=== PATIENT | female | born 1970 | race Caucasian/White ===

== ENCOUNTER 2018-09-25 06:11 | Inpatient (IN) | payer MEDICAID ==
[2018-09-25] VITALS (57 sets, daily range): BP systolic 107–150; BP diastolic 26–109
[~2018-09-25] VITALS: Ht 160 cm; Wt 74.6 kg
[~2018-09-25 06:11] MED LIST: AMIT100T2 PO; ATOR-2 PO; BENA20TA10 PO; LACTATED RINGERS 1,000 ML IV SCH; SERT-112 PO
[2018-09-25] MEDS ORDERED: ALPR1TAB2 PO (07:51)
[2018-09-25] MEDS ORDERED: DULO30CA2 PO (07:51)
[2018-09-25] MEDS ORDERED: THROMBIN (BOVINE) 5000 UNITS/VIAL TOP ONE (07:56)
[2018-09-25] MEDS ORDERED: BACITRACIN 50,000 UNITS/VIAL ONE (07:56)
[2018-09-25] MEDS ORDERED: NORMAL SALINE 0.9% 10 ML SYR ONE (07:56)
[2018-09-25] MEDS ORDERED: LIDOCAINE HCL/EPINEPHRINE 1%-EPI 1:100,000 20 ML VIAL ONE (07:56)
[2018-09-25] MEDS ORDERED: HYDROCODONE/APAP 7.5/325MG 1 TAB TABLET PO PRN (09:30)
[2018-09-25] MEDS ORDERED: FENTANYL CITRATE/PF 50MCG/ML 2ML VIAL ONE ×2 (09:54→11:11)
[2018-09-25] MEDS ORDERED: ROCURONIUM BROMIDE 10MG/ML VIAL 5ML IV ONE (09:54)
[2018-09-25] MEDS ORDERED: MIDAZOLAM HCL 5 MG/5 ML VIAL ONE (09:55)
[2018-09-25] MEDS ORDERED: PROPOFOL 200MG/20ML VIAL IV ONE (09:55)
[2018-09-25] MEDS ORDERED: CEFAZOLIN SODIUM 1000MG/VIAL ONE (09:56)
[2018-09-25] MEDS ORDERED: LIDOCAINE HCL/PF 1% 10 MG/ML 5ML VIAL ONE (09:56)
[2018-09-25] MEDS ORDERED: MIDAZOLAM HCL 2 MG/2 ML VIAL ONE (09:57)
[2018-09-25] MEDS ORDERED: METOCLOPRAMIDE HCL 10MG/2ML VIAL ONE (11:58)
[2018-09-25] MEDS ORDERED: NEOSTIGMINE METHYLSULFATE 1MG/ML 10 ML VIAL ONE (12:01)
[2018-09-25] MEDS ORDERED: GLYCOPYRROLATE 0.2 MG/ML 2ML VIAL ONE (12:01)
[2018-09-25] MEDS ORDERED: NICARDIPINE 100 MG in SODIUM CHLORIDE 0.9% 60 ML IV PRN (12:30)
[2018-09-25] MEDS: DEXT 5%/LACTATED RINGERS 1,000 ML IV SCH ×2 (13:02→18:06)
[2018-09-25] MEDS: MORPHINE SULFATE 4 MG/ML CPJ (NOT FOR IM USE) IV PRN (13:27)
[2018-09-25] MEDS: ONDANSETRON HCL 4MG/2ML INJ IV PRN ×3 (13:27→21:18)
[2018-09-25] MEDS ORDERED: ONDANSETRON INJ IV PRN (13:45)
[2018-09-25] MEDS ORDERED: NALOXONE INJ IV PRN (13:45)
[2018-09-25] MEDS ORDERED: CEFAZOLIN SODIUM 1000MG/VIAL IV SCH (14:00)
[2018-09-25] MEDS: MORPHINE PCA 50MG/50ML IV PRN (14:25)
[2018-09-25] MEDS ORDERED: IPRATROPIUM/ALBUTEROL 0.5-3(2.5)MG/3ML NEB HHN PRN (16:00)
[2018-09-25] MEDS: CEFAZOLIN 1000MG PREMIX 50 ML IV SCH ×2 (18:05→22:49)
[2018-09-25] MEDS: PANTOPRAZOLE SODIUM 40 MG/VIAL IV SCH (18:05)
[2018-09-25] MEDS: DEXAMETHASONE 4MG/ML 1ML VIAL IV SCH (18:06)
[2018-09-25] MEDS: DULOXETINE HCL 30MG DR CAPSULE PO SCH (18:07)
[2018-09-25] MEDS: ATORVASTATIN CALCIUM 10MG TABLET PO SCH (21:18)
[2018-09-26] VITALS (59 sets, daily range): BP systolic 100–154; BP diastolic 52–97
[2018-09-26] MEDS: DEXAMETHASONE 4MG/ML 1ML VIAL IV SCH ×4 (00:19→18:19)
[2018-09-26] MEDS: MORPHINE SULFATE 4 MG/ML CPJ (NOT FOR IM USE) IV PRN ×2 (00:19→20:43)
[2018-09-26] MEDS: MORPHINE PCA 50MG/50ML IV PRN ×2 (04:05→18:46)
[2018-09-26] MEDS: CEFAZOLIN 1000MG PREMIX 50 ML IV SCH ×2 (05:52→13:02)
[2018-09-26] MEDS: DEXT 5%/LACTATED RINGERS 1,000 ML IV SCH ×4 (05:53→23:57)
[2018-09-26 06:08] LABS: HEMATOCRIT. 37.2 % (36.0-48.0); HEMOGLOBIN. 12.5 g/dL (12.0-16.0); MEAN CORPUSCULAR HEMOGLOBIN 30.3 pg (28.0-32.0); MEAN CORPUSCULAR VOLUME 90.3 fL (81.0-99.0); MEAN PLATELET VOLUME 9.2 fl (7.4-10.4); PLATELET 256 x1000/uL (130-400); RED BLOOD CELL COUNT 4.12 mill/uL (4.2-5.4)
[2018-09-26 06:15] LABS: CHLORIDE 106 mEq/L (98-107)
[2018-09-26] MEDS: ONDANSETRON HCL 4MG/2ML INJ IV PRN (06:25)
[2018-09-26 07:25] LABS: PLATELET ESTIMATE NORMAL
[2018-09-26] MEDS: PANTOPRAZOLE SODIUM 40 MG/VIAL IV SCH (09:53)
[2018-09-26] MEDS: DULOXETINE HCL 30MG DR CAPSULE PO SCH ×2 (09:53→18:19)
[2018-09-26] MEDS: DIPHENHYDRAMINE INJ IV PRN ×2 (09:53→18:19)
[2018-09-26] MEDS: METOCLOPRAMIDE HCL 10MG/2ML VIAL IV PRN (18:19)
[2018-09-26] MEDS: ATORVASTATIN CALCIUM 10MG TABLET PO SCH (20:43)
[2018-09-26 20:57] LABS: CLARITY URINE CLEAR (CLEAR); COLOR URINE YELLOW (YELLOW); KETONES URINE NEGATIVE (NEGATIVE); LEUKOCYTE ESTERASE URINE NEGATIVE (NEGATIVE); NITRITE URINE NEGATIVE (NEGATIVE); OCCULT BLOOD URINE TRACE (NEGATIVE); PROTEIN URINE NEGATIVE (NEGATIVE); SPECIFIC GRAVITY URINE 1.008 (1.005-1.030); UROBILINOGEN URINE 0.2 E.U./dL (0.2-1.0)
[2018-09-26 21:13] LABS: *AMPHETAMINES SCREEN URINE NEGATIVE (NEGATIVE); *BARBITURATES SCREEN URINE NEGATIVE (NEGATIVE)
[2018-09-26 21:14] LABS: *BENZODIAZEPINES SCREEN URINE NEGATIVE (NEGATIVE); *COCAINE SCREEN URINE NEGATIVE (NEGATIVE); METHADONE URINE SCREEN NEGATIVE (NEGATIVE); PHENCYCLIDINE URINE SCREEN NEGATIVE (NEGATIVE)
[2018-09-26 21:18] LABS: CANNABINOID URINE SCREEN PRESUMTIVE POSITIVE (NEGATIVE); OPIATES URINE SCREEN PRESUMTIVE POSITIVE (NEGATIVE)
[2018-09-27] VITALS (21 sets, daily range): BP systolic 105–147; BP diastolic 65–92
[2018-09-27] MEDS: DIPHENHYDRAMINE INJ IV PRN ×2 (04:47→16:53)
[2018-09-27 09:04] LABS: HEMATOCRIT. 36.3 % (36.0-48.0); MEAN CORPUSCULAR HEMOGLOBIN 29.7 pg (28.0-32.0); MEAN CORPUSCULAR VOLUME 89.8 fL (81.0-99.0); MEAN PLATELET VOLUME 8.7 fl (7.4-10.4); PLATELET 235 x1000/uL (130-400); RED BLOOD CELL COUNT 4.04 mill/uL (4.2-5.4); RED CELL DISTRIBUTION WIDTH 13.9 % (11.6-14.6)
[2018-09-27 09:14] LABS: CHLORIDE 107 mEq/L (98-107)
[2018-09-27] MEDS: PANTOPRAZOLE SODIUM 40 MG/VIAL IV SCH (09:31)
[2018-09-27] MEDS: DEXT 5%/LACTATED RINGERS 1,000 ML IV SCH ×2 (09:31→16:36)
[2018-09-27] MEDS: DULOXETINE HCL 30MG DR CAPSULE PO SCH ×2 (09:31→16:36)
[2018-09-27] MEDS: METOCLOPRAMIDE HCL 10MG/2ML VIAL IV PRN (09:31)
[2018-09-27 09:36] LABS: PLATELET ESTIMATE NORMAL
[2018-09-27] MEDS: DOCUSATE SODIUM 100MG CAPSULE PO SCH (16:36)
[2018-09-27] MEDS: MORPHINE SULFATE 4 MG/ML CPJ (NOT FOR IM USE) IV PRN ×2 (16:54→23:44)
[2018-09-27] MEDS: ONDANSETRON HCL 4MG/2ML INJ IV PRN ×2 (16:54→23:42)
[2018-09-27] MEDS ORDERED: POLYETHYLENE GLYCOL 3350 (17GM) 1 DOSE PACK PO SCH (21:00)
[2018-09-27] MEDS: ATORVASTATIN CALCIUM 10MG TABLET PO SCH (21:18)
[2018-09-28 04:00] VITALS: BP 112/69
[2018-09-28 08:00] VITALS: BP 129/78
[2018-09-28] MEDS: DULOXETINE HCL 30MG DR CAPSULE PO SCH (08:34)
[2018-09-28] MEDS: PANTOPRAZOLE SODIUM 40 MG/VIAL IV SCH (08:34)
[2018-09-28] MEDS: DOCUSATE SODIUM 100MG CAPSULE PO SCH (08:34)
[2018-09-28] MEDS: ONDANSETRON HCL 4MG/2ML INJ IV PRN (08:34)
[2018-09-28 08:35] LABS: BASOPHILS % 0.4 % (0.0-2.0); EOSINOPHILS % 0.5 % (0.0-5.0); HEMATOCRIT. 34.9 % (36.0-48.0); HEMOGLOBIN. 11.5 g/dL (12.0-16.0); LYMPHOCYTES % 13.2 % (20.0-50.0); MEAN CORPUSCULAR HEMOGLOBIN 29.7 pg (28.0-32.0); MEAN CORPUSCULAR VOLUME 90.1 fL (81.0-99.0); MEAN PLATELET VOLUME 9.1 fl (7.4-10.4); NEUTROPHILS % 74.9 % (40.0-76.0); PLATELET 229 x1000/uL (130-400); RED BLOOD CELL COUNT 3.88 mill/uL (4.2-5.4); RED CELL DISTRIBUTION WIDTH 13.8 % (11.6-14.6)
[2018-09-28] MEDS: MORPHINE SULFATE 4 MG/ML CPJ (NOT FOR IM USE) IV PRN (08:35)
[2018-09-28 08:40] LABS: CHLORIDE 103 mEq/L (98-107)
[2018-09-28 09:56] VITALS: BP 129/78
[2018-09-28] MEDS ORDERED: HYDR-4001 MT (12:11)
== END 2018-09-28 12:45 | disposition home or self-care (01) | DRG 321 ==
LOC: OR 06:11 → MICUNO 06:12 → 6EST 09-27 15:20
PROVIDERS: ADMIT Neurological Surgery; ATTEND Internal Medicine
PROC: 0RG20A0 Fusion of 2 or more Cervical Vertebral Joints with Interbody Fusion Device, Anterior Approach, Anterior Column, Open Approach (ICD-10-PCS; principal; 2018-09-25)
PROC: 0RB30ZZ Excision of Cervical Vertebral Disc, Open Approach (ICD-10-PCS; 2018-09-25)
DX: M47.12 Other spondylosis with myelopathy, cervical region (principal); G82.50 Quadriplegia, unspecified; G35 Multiple sclerosis; R13.10 Dysphagia, unspecified; I24.9 Acute ischemic heart disease, unspecified; N02.8 Recurrent and persistent hematuria with other morphologic changes; M47.22 Other spondylosis with radiculopathy, cervical region; M48.02 Spinal stenosis, cervical region; I10 Essential (primary) hypertension; E78.5 Hyperlipidemia, unspecified; J45.990 Exercise induced bronchospasm; K21.9 Gastro-esophageal reflux disease without esophagitis; R74.0 Nonspecific elevation of levels of transaminase and lactic acid dehydrogenase [LDH]; D18.00 Hemangioma unspecified site; E78.00 Pure hypercholesterolemia, unspecified; F12.90 Cannabis use, unspecified, uncomplicated; G89.4 Chronic pain syndrome; Z90.49 Acquired absence of other specified parts of digestive tract; Z90.710 Acquired absence of both cervix and uterus; Z82.49 Family history of ischemic heart disease and other diseases of the circulatory system
CPT/HCPCS: 36415; 72040; 72141; 76000; 80048; 80305; 84484; 86850; 86900; 88304; 88311; 92610; 93005; 95925; 95926; 95928; 97110; 97116; 97162; 97166; 97530; 97535; A6261; C1713; C9113; J0690; J1100; J1200; J2250; J2270; J2405; J2704; J2710; J2765; J3010; J3490; J7121; L0172